=== PATIENT | female | born 1995 | race Caucasian/White ===

== ENCOUNTER 2021-10-26 14:38 | Emergency (ER) | payer OTHER, SELFPAY ==
[2021-10-26 17:00] VITALS: BP 191/108; PULSE 79; RESP 16; TEMP 36.9; O2SAT 99; BMI 29.5
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
--- NOTE | 2021-10-26 17:21 | XRR_ITS ---
PROCEDURE INFORMATION: Exam: XR Pelvis Exam date and time: 10/26/2021 5:21 PM Age: 26 years old Clinical indication: Pelvic pain; Additional info: Injury TECHNIQUE: Imaging protocol: XR pelvis. Views: 1 or 2 view. COMPARISON: No relevant prior studies available. FINDINGS: Bones/joints: Unremarkable. No acute fracture. Soft tissues: Unremarkable. XR/XR pelvis 1-2V* [id number] IMPRESSION: No acute findings. Radiation Dose CTDIVOL = (mGy): DLP = (mGy-cm)
== END 2021-10-26 18:27 | disposition home or self-care (01) ==
PROVIDERS: Emergency Provider Nurse Practitioner Family; PCP Nurse Practitioner Family
DX: M54.16 Radiculopathy, lumbar region (principal); V89.2XXA Person injured in unspecified motor-vehicle accident, traffic, initial encounter
CPT/HCPCS: 72100; 72170; 99281

== ENCOUNTER 2022-09-05 10:42 | Outpatient (CLI) | payer OTHER, SELFPAY ==
--- NOTE | 2022-09-05 12:00 | CT_ITS ---
WS: [id number] CT ABDOMEN AND PELVIS NONCONTRAST HISTORY: N94.6 - Dysmenorrhea, unspecified TECHNIQUE: Imaging performed through the abdomen and pelvis. Coronal and sagittal reformats are submi tted. All CT scans at [facility] use at least one of these dose optimization techniques: auto mated exposure control; mA and/or kV adjustment per patient size (includes targeted exams where dose is matched to clinical indication); or iterative reconstruction. DLP: 1336.31 mGy.cm COMPARISON: None available. Lower thorax: Lung bases are clear. Visualized heart is normal. No hiatal hernia. Liver: Normal size liver. No mass or bile duct dilatation. Gallbladder: Normal gallbladder. Pancreas: Normal size and attenuation. Normal pancreatic duct. No pancreatitis or mass. Spleen: Normal. Adrenal glands: Normal. No mass. Right kidney: Normal size kidney with no mass or hydronephrosis. Left kidney: Normal size kidney with no mass or hydronephrosis. Aorta: Normal abdominal aorta, no aneurysm or atherosclerosis. No free fluid or free air. There are several small lymph nodes in the mesentery and RIGHT lower quadr ant. Lymph nodes all measure less than a centimeter. GI tract: Normal appendix. No GI tract obstruction or diverticulosis. Abdominal wall: Negative. No hernia. Pelvis: Normal. Osseous structures: Unremarkable. CT/CT abdomen pelvis wo con [id number] IMPRESSION: 1. No acute abdominal or pelvic abnormalities are identified. 2. The appendix is normal. 3. Slight increase in the number of lymph nodes in the mesentery and RIGHT low er quadrant. This can be seen with mesenteric adenitis.
== END 2022-09-05 10:43 | disposition home or self-care (01) ==
LOC: RAD 10:43
PROVIDERS: Visit Provider Family Medicine
DX: N94.6 Dysmenorrhea, unspecified (principal); M62.838 Other muscle spasm
CPT/HCPCS: 74176

== ENCOUNTER → 2022-09-07 11:47 | Outpatient (BNVA) | payer OTHER, SELFPAY | PROVIDERS: PCP Family Medicine; Visit Provider Family Medicine | DX: N94.6 Dysmenorrhea, unspecified (principal) | CPT/HCPCS: 88175 ==

== ENCOUNTER → 2022-10-05 15:24 | Outpatient (BNVA) | payer OTHER, SELFPAY | PROVIDERS: PCP Family Medicine; Visit Provider Family Medicine | DX: R30.0 Dysuria (principal) | CPT/HCPCS: 81000 ==

== ENCOUNTER → 2023-01-30 10:00 | Outpatient (BNVA) | payer BC, SELFPAY | PROVIDERS: PCP Family Medicine; Visit Provider Obstetrics & Gynecology | DX: N92.6 Irregular menstruation, unspecified (principal) | CPT/HCPCS: 83036; 83525; 84443 ==

== ENCOUNTER → 2023-02-23 08:09 | Outpatient (BNVA) | payer BC, SELFPAY | PROVIDERS: PCP Family Medicine; Visit Provider Obstetrics & Gynecology | DX: N94.6 Dysmenorrhea, unspecified (principal) | CPT/HCPCS: 76830 ==

== ENCOUNTER → 2023-05-05 11:00 | Outpatient (BNVA) | payer BC, SELFPAY | PROVIDERS: PCP Family Medicine; Visit Provider Obstetrics & Gynecology | DX: R63.5 Abnormal weight gain (principal) | CPT/HCPCS: 84443 ==

== ENCOUNTER → 2023-08-16 13:40 | Outpatient (BNVA) | payer BC, SELFPAY | PROVIDERS: PCP Family Medicine; Visit Provider Nurse Practitioner Family | DX: R30.0 Dysuria (principal); M54.50 Low back pain, unspecified | CPT/HCPCS: 81000 ==

== ENCOUNTER → 2023-11-28 15:25 | Outpatient (BNVA) | payer OTHER, SELFPAY | PROVIDERS: PCP Family Medicine; Visit Provider Nurse Practitioner Family | DX: Z13.6 Encounter for screening for cardiovascular disorders (principal); R73.03 Prediabetes; E55.9 Vitamin D deficiency, unspecified; Z79.899 Other long term (current) drug therapy | CPT/HCPCS: 87400 ==

== ENCOUNTER → 2023-11-28 15:25 | Outpatient (BNVA) | payer OTHER, SELFPAY | PROVIDERS: PCP Family Medicine; Visit Provider Nurse Practitioner Family | DX: R73.03 Prediabetes (principal); E55.9 Vitamin D deficiency, unspecified; Z13.6 Encounter for screening for cardiovascular disorders; E66.9 Obesity, unspecified; M54.50 Low back pain, unspecified; Z79.899 Other long term (current) drug therapy | CPT/HCPCS: 80053; 80061; 81003; 82306; 83036; 84439; 84443; 84481; 85025; 87400 ==

== ENCOUNTER 2025-02-25 06:30 | Outpatient (RCR) | payer BC, SELFPAY | END 2025-03-26 23:55 | disposition home or self-care (01) | LOC: WPT 06:30 | PROVIDERS: Visit Provider Physician Assistant | DX: M22.2X2 Patellofemoral disorders, left knee (principal) | CPT/HCPCS: 97110; 97161; 97530 ==

== ENCOUNTER 2025-03-27 06:30 | Outpatient (RCR) | payer BC, SELFPAY | END 2025-04-26 23:59 | disposition home or self-care (01) | LOC: WPT 06:30 | PROVIDERS: Visit Provider Physician Assistant | DX: M22.2X2 Patellofemoral disorders, left knee (principal) | CPT/HCPCS: 97110; 97112; 97530 ==

== ENCOUNTER 2025-04-27 05:00 | Outpatient (RCR) | payer BC, SELFPAY | END 2025-05-26 23:59 | disposition home or self-care (01) | LOC: WPT 05:00 | PROVIDERS: Visit Provider Physician Assistant | DX: M22.2X2 Patellofemoral disorders, left knee (principal) | CPT/HCPCS: 97110; 97112; 97530 ==

== ENCOUNTER 2025-05-27 06:30 | Outpatient (RCR) | payer BC, SELFPAY | END 2025-06-26 23:59 | disposition home or self-care (01) | LOC: WPT 06:30 | PROVIDERS: Visit Provider Physician Assistant | DX: M22.2X2 Patellofemoral disorders, left knee (principal) | CPT/HCPCS: 97110; 97112; 97140; 97161; 97530 ==

== ENCOUNTER → 2025-09-22 08:43 | Outpatient (BNVA) | payer BC, SELFPAY | PROVIDERS: PCP Nurse Practitioner Family; Visit Provider Nurse Practitioner Women's Health | DX: Z34.90 Encounter for supervision of normal pregnancy, unspecified, unspecified trimester (principal) | CPT/HCPCS: 84702; 86850; 86900 ==